=== PATIENT | male | born 1965 | race Caucasian/White ===

== ENCOUNTER 2017-12-14 14:41 | Emergency (ER) | payer BC ==
[2017-12-14 15:53] LABS: Band 4 % (5-11); Hemoglobin 16.2 g/dL (14.0-18.0); Lymphocytes 7 % (21-51); MDiff Complete? YES; Mean Corpuscular HGB CONC 34.8 g/dL (32.0-36.0); Mean Corpuscular Hemoglobin 30.4 pg (27.0-31.0); Mean Corpuscular Volume 87.2 fl (80.0-94.0); Mean Platelet Volume 7.9 fL (7.4-10.4); Monocytes 6 % (0-10); Neutrophil 81 % (42-75); PLT Morphology Comment Appears Adequate; Platelet Count 200 thou/uL (130-400); RBC Distribution Width 12.6 % (11.5-14.5); Reactive Lymphocytes 2 % (0-10); Red Blood Cell (RBC) Count 5.34 mill/uL (4.70-6.10); White Blood Cell (WBC) Count 11.3 thou/uL (4.8-10.8)
[2017-12-14 15:58] LABS: ALT (SGPT) 20 U/L (8-55); AST (SGOT) 22 U/L (5-34); Alkaline Phosphatase 48 U/L (40-150); Anion Gap 14 mmol/L (10-20); BUN (Urea Nitrogen) 5 mg/dL (8.4-25.7); Bilirubin, Total 1.1 mg/dL (0.2-1.2); Calc. Creatinine Clearance 0 mL/min (70-130); Carbon Dioxide 23 mmol/L (22-29); Chloride 104 mmol/L (98-107); Estimated GFR-MDRD Greater than 90; Glucose 92 mg/dL (70-105); Lipase 9 U/L (8-78); Potassium 3.9 mmol/L (3.5-5.1); Sodium 137 mmol/L (136-145)
[2017-12-14 15:59] LABS: Acetaminophen Less than 6.0 mcg/mL (10.0-30.0); Alcohol Less than 10 mg/dL (Less than 10); CKMB 2.2 ng/mL (0-6.6); Salicylate Less than 8.0 mg/dL (15.0-30.0); Troponin I Less than 0.010 ng/mL (< 0.028)
--- NOTE | 2017-12-14 16:28 | CT ---
NONCONTRAST CT HEAD: 12/14/17 HISTORY: Trauma. Found patient this a.m. incoherent post fall. Blurred vision and lethargy. FINDINGS: There is no evidence of a hemorrhage, acute infarct, mass effect, or midline shift. Ventricular syste m is normal in size, shape and position. There is irregularity involving the orbital floor bilaterall y likely related to remote fractures. There is no fluid in the paranasal sinuses. No calvarial fractu re is seen. There has been no interval change from the prior exam. IMPRESSION: No acute intracranial abnormality demonstrated. POS: [facility]
--- NOTE | 2017-12-14 16:29 | CT ---
CT CERVICAL SPINE WITH CORONAL AND SAGITTAL REFORMATIONS: 12/14/17 HISTORY: Fall, trauma, neck pain. FINDINGS/IMPRESSION: Multilevel degenerative changes are present. No acute fracture or subluxation is identified. POS: [facility]
[2017-12-14] MEDS ORDERED: Clindamycin 150 MG CAP ONE (17:04)
--- NOTE | 2017-12-14 17:11 | CT ---
CT CHEST WITH IV CONTRAST CT ABDOMEN AND PELVIS WITH IV CONTRAST CT THORACIC AND LUMBAR SPINE 12/14/17 HISTORY: Trauma, patient found this morning incoherent post fall. CT THORAX: There are minimal patchy ground glass densities seen at the left lung base which could be related to either developing pneumonia or aspiration pneumonitis. No pleural effusion or pneumothorax is seen. T here is no evidence of an aortic injury. There is a slightly hypodense nodule left lobe of the thyroid gland measuring 1.3 cm. No fracture is visualized. 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 CT ABDOMEN AND PELVIS: There is a small hiatal hernia. 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 The liver, spleen, pancreas, bilateral adrenal glands, kidneys, abdominal aorta, and urinary bladder demonstrate a normal CT appearance. There is no free fluid or free intraperitoneal gas seen in the abdomen or pelvis. There is stranding and mild edema seen within the right anterior aspect of the lower abdomen and uppe r pelvis which may be related to contusion. There is no evidence of a fracture. There is mild bilateral hip osteoarthritis. CT THORACIC AND LUMBAR SPINE: Multilevel degenerative changes are seen involving the lower cervical, thoracic and lumbar spine with multilevel osteophyte seen involving the lower thoracic and upper lumbar spine with bridging osteoph ytes seen anteriorly. The vertebral body heights do appear to be within normal limits, and no fractur e or subluxation is seen. There is a subtle rounded subcentimeter lucency within the right aspect of the T5 vertebral body whic h cannot be further characterized but this could potentially represent a tiny hemangioma. IMPRESSION: 1. Subtle hypodense nodule left lobe of the thyroid gland. Nonemergent thyroid ultrasound is rec ommended for further evaluation. 2. No acute findings are seen in the chest, abdomen or pelvis. 3. Postsurgical changes related to gastric bypass procedure. There is evidence of a hiatal herni a. 4. Contusion and edema within the subcutaneous soft tissues to the right of midline in the lower abdomen/upper pelvis. 5. No fracture or subluxation involving the thoracic or lumbar spine. There are multilevel degen erative changes present. POS: [facility]
== END 2017-12-14 17:13 | disposition home or self-care (01) ==
LOC: SCSER 14:41
DX: T42.6X1A Poisoning by other antiepileptic and sedative-hypnotic drugs, accidental (unintentional), initial encounter (principal); S30.1XXA Contusion of abdominal wall, initial encounter; J69.0 Pneumonitis due to inhalation of food and vomit; E04.1 Nontoxic single thyroid nodule; Z79.899 Other long term (current) drug therapy; W19.XXXA Unspecified fall, initial encounter
CPT/HCPCS: 70450; 71260; 72125; 74177; 80053; 80307; 82553; 83690; 84484; 85025; 93005

== ENCOUNTER 2018-01-27 20:45 | Emergency (ER) | payer BC ==
--- NOTE | 2018-01-27 22:23 | ULT ---
LEFT LOWER EXTREMITY VENOUS DOPPLER: 01/27/18 HISTORY: Evaluate for DVT. COMPARISON: None. TECHNIQUE: Real time caceres scale, color doppler and spectral analysis left lower extremity venous system was perf ormed. The common femoral, femoral, proximal portion of the greater saphenous and deep femoral veins, as well as the popliteal and posterior tibial veins are interrogated. Normal flow and augmentation and compression. There is a superficial thrombophlebitis and soft tissue swelling. IMPRESSION: 1. No deep venous thrombosis. 2. Superficial thrombophlebitis and soft tissue edema. POS: [facility]
== END 2018-01-27 22:48 | disposition home or self-care (01) ==
LOC: SCSER 20:45
DX: I80.02 Phlebitis and thrombophlebitis of superficial vessels of left lower extremity (principal)

== ENCOUNTER 2019-07-09 07:57 | Outpatient (CLI) | payer BC ==
[2019-07-09 08:30] LABS: Bilirubin Negative (Negative); Blood, Urine Negative (Negative); Clarity Clear (Clear); Glucose, Urine (Dipstick) Negative (Negative); Leukocyte Negative (Negative); Nitrite Negative (Negative); Protein, Urine (Dipstick) Negative (Neg-Trace)
[2019-07-09 08:31] LABS: #Basophils 0.1 thou/uL (0.0-0.2); #Eosinphils 0.1 thou/uL (0.0-0.7); #Lymphocytes 2.2 thou/uL (1.20-3.40); #Monocytes 0.5 thou/uL (0.11-0.59); #Neutrophils 3.3 thou/uL (1.40-6.50); %Basophils 0.8 % (0.0-1.0); %Eosinophils 1.7 % (0.0-10.0); %Lymphocytes 36.4 % (21.0-51.0); %Monocytes 7.3 % (0.0-10.0); %Neutrophils 53.8 % (42.0-75.0); Hemoglobin 15.3 g/dL (14.0-18.0); Mean Corpuscular HGB CONC 31.3 g/dL (32.0-36.0); Mean Corpuscular Hemoglobin 28.4 pg (27.0-31.0); Mean Corpuscular Volume 90.6 fL (78.0-98.0); Mean Platelet Volume 7.6 fL (7.4-10.4); Platelet Count 197 thou/uL (130-400); RBC Distribution Width 13.7 % (11.5-14.5); Red Blood Cell (RBC) Count 5.41 mill/uL (4.70-6.10); White Blood Cell (WBC) Count 6.2 thou/uL (4.8-10.8)
[2019-07-09 08:45] LABS: ALT (SGPT) 20 U/L (8-55); AST (SGOT) 25 U/L (5-34); Albumin 4.2 g/dL (3.5-5.0); Alkaline Phosphatase 49 U/L (40-110); Anion Gap 14 mmol/L (10-20); BUN (Urea Nitrogen) 6 mg/dL (8.4-25.7); Bilirubin, Total 0.6 mg/dL (0.2-1.2); Calc. Creatinine Clearance 0 mL/min (70-130); Calcium 9.2 mg/dL (7.8-10.44); Carbon Dioxide 30 mmol/L (22-29); Cardiac Risk 2.5 (Less than 4.5); Chloride 102 mmol/L (98-107); Cholesterol 157 mg/dl (< 200 Desired); Estimated GFR-MDRD Greater than 90; Globulin 3.1 g/dL (2.4-3.5); Glucose 89 mg/dL (70-105); HDL Cholesterol 64 mg/dL (>60 Neg Risk); LDL Cholesterol, Calculated 81 mg/dL; Potassium 4.3 mmol/L (3.5-5.1); Protein, Total 7.3 g/dL (6.0-8.3); Sodium 142 mmol/L (136-145); Triglycerides 58 mg/dL (Less than 150)
--- NOTE | 2019-07-09 08:51 | ULT ---
THYROID ULTRASOUND: DATE: 07/09/2019. COMPARISON: None. HISTORY: Evaluate thyroid gland, nodule suspected on recent CT examination. TECHNIQUE: Multiplanar grayscale sonographic imaging of the thyroid gland obtained. FINDINGS: The thyroid isthmus measures 8 mm in AP dimension, the right lobe measures 5.1 x 2.3 x 2.4 cm, and th e left lobe measures 5.4 x 2.3 x 2.3 cm. There is a small cyst/hypoechoic nodule within the thyroid isthmus measuring 5 x 2 x 6 mm. The left lobe of the thyroid gland is diffusely heterogeneous. There is a small solid hypoechoic nodu le within the mid left lobe measuring approximately 9 mm in greatest dimension. There is a round solid hypoechoic nodule within the posterior aspect of the mid right lobe measuring approximately 1.5 x 1.3 x 1.4 cm. It is difficult to accurately measure secondary to its ill-defined margins. There is a second ill-defined solid hypoechoic nodule further inferiorly within the right lobe posteriorly measuring approximately 1.5 x 0.9 x 1.0 cm. IMPRESSION: 1. The thyroid gland is diffusely heterogeneous. There are solid nodules within the right lobe, diff icult to accurately measure secondary to ill-defined margins which measure up to approximately 1.5 cm. 2. TIRADS Category 4-moderately suspicious. As solid hypoechoic nodules measure up to 1.5 cm on the right, fine-needle aspiration is advised. The ill-defined nature and patient body habitus may make fine-needle aspiration of these nodules difficult. Better assessment of nodules at time of fine-needl e aspiration required. Transcribed Date/Time: 07/09/2019 9:06 AM
[2019-07-09 08:59] LABS: Bacteria/HPF None Seen HPF (None Seen); RBC/HPF None Seen HPF (0-3); Squamous Epithelial None Seen HPF (0-3); WBC/HPF None Seen HPF (0-3)
[2019-07-09 09:26] LABS: Free T4 (Free Thyroxine) 0.97 ng/dL (0.70-1.48); PSA-Asymptomatic (SCREENING) 2.12 ng/mL (0-4.0); Thyroid Stimulating Hormone 1.072 uIU/mL (0.35-4.94)
== END 2019-07-09 07:58 | disposition home or self-care (01) ==
LOC: SCSULT 07:57
PROVIDERS: ATTEND Family Medicine
DX: Z00.00 Encounter for general adult medical examination without abnormal findings (principal); E04.2 Nontoxic multinodular goiter
CPT/HCPCS: 36415; 76536; 80053; 80061; 81001; 84439; 84443; 85025; G0103

== ENCOUNTER 2019-09-03 12:26 | Day surgery (SDC) | payer BC ==
[2019-08-31 17:08] VITALS: BMI 34.5
--- NOTE | 2019-09-03 14:29 | ULT ---
Ultrasound-guided right thyroid nodule fine-needle aspirate INDICATION: Suspicious nodule within the right mid thyroid lobe identified on a thyroid ultrasound da cory July 09, 2019. This was designated TIRADS category 4 lesion measuring up to 1.5 cm in size. TECHNIQUE: Preprocedure ultrasound identified the suspicious nodule seen within the mid right thyroid region. Informed consent was obtained. The site overlying the neck was prepped and draped in usual sterile fashion. Buffered lidocaine was measured overlying subcutaneous tissues and overlying strap m usculature. Ultrasound guidance, 4 separate 25-gauge needles was guided into the lesion. 4 separate FNA samples were obtained. Pathology was on-site to acquire the FNA samples once obtained. Postproced ural images demonstrated no significant intraparenchymal hematoma. Patient tolerated the sampling without difficulty. IMPRESSION: Successful ultrasound-guided right thyroid nodule FNA.
== END 2019-09-03 14:30 | disposition home or self-care (01) ==
LOC: ULT 12:26
PROVIDERS: ATTEND Family Medicine
PROC: 0G9H3ZX Drainage of Right Thyroid Gland Lobe, Percutaneous Approach, Diagnostic (ICD-10-PCS; principal; 2019-09-03)
DX: E04.1 Nontoxic single thyroid nodule (principal); J45.909 Unspecified asthma, uncomplicated; F32.9 Major depressive disorder, single episode, unspecified; F41.9 Anxiety disorder, unspecified; F90.9 Attention-deficit hyperactivity disorder, unspecified type; Z79.82 Long term (current) use of aspirin; Z79.899 Other long term (current) drug therapy; Z88.0 Allergy status to penicillin; Z88.8 Allergy status to other drugs, medicaments and biological substances; Z98.84 Bariatric surgery status
CPT/HCPCS: 60100; 76942; 88173